=== PATIENT | female | born 1955 | race Caucasian/White ===

== ENCOUNTER → 2021-09-27 | Outpatient (CLI) | payer MEDICARE, OTHER ==
[2021-09-27 13:49] LABS: BASO % 0.4 % (0.0-1.0); EOS # 0.1 10^3/uL (0.0-0.5); EOS % 1.7 % (0.0-3.0); HEMATOCRIT 46.1 % (36.0-47.0); HEMOGLOBIN 15.3 g/dl (12.0-15.5); LYMPH % 24.1 % (24.0-44.0); MEAN CORPUSCULAR HEMOGLOBIN 29.1 pg (27.0-33.0); MEAN CORPUSCULAR HGB CONC 33.2 g/dl (32.0-36.5); MEAN CORPUSCULAR VOLUME 87.6 fl (80.0-96.0); MONO # 0.9 10^3/uL (0.0-0.8); MONO % 10.5 % (2.0-8.0); NEUTROPHILS # 5.3 10^3/uL (1.5-8.5); NEUTROPHILS % 63.1 % (36.0-66.0); PLATELET COUNT, AUTOMATED 292 10^3/uL (150-450); RED BLOOD COUNT 5.26 10^6/uL (4.00-5.40); WHITE BLOOD COUNT 8.4 10^3/uL (4.0-10.0)
[2021-09-27 14:14] LABS: ALT/SGPT 29 U/L (12-78); BILIRUBIN,TOTAL 0.3 MG/DL (0.2-1.0); BLOOD UREA NITROGEN 14 MG/DL (7-18); CALCIUM LEVEL 10.1 MG/DL (8.8-10.2); CARBON DIOXIDE LEVEL 33 MEQ/L (21-32); CHLORIDE LEVEL 102 MEQ/L (98-107); CHOLESTEROL LEVEL 180 MG/DL (<200); CHOLESTEROL RISK RATIO 5.142 (<5); CREATININE FOR GFR 0.65 MG/DL (0.55-1.30); GLOMERULAR FILTRATION RATE > 60.0 (>45); GLUCOSE, FASTING 104 MG/DL (70-100); HDL CHOLESTEROL 35 MG/DL (>40); LDL CHOLESTEROL 107 MG/DL (<100); NON-HDL-C 145 MG/DL; POTASSIUM SERUM 4.1 MEQ/L (3.5-5.1); SODIUM LEVEL 139 MEQ/L (136-145); TOTAL PROTEIN 7.4 GM/DL (6.4-8.2); TRIGLYCERIDES LEVEL 192 MG/DL (<150)
[2021-09-27 14:21] LABS: CREATININE, URINE 16.7 MG/DL; MALB URINE SIEMENS 5.2 MG/L; MAU/CREAT RATIO 31.1 MCG/MG (0.0-30.0)
[2021-09-27 15:06] LABS: HEMOGLOBIN A1c 5.8 %
== END ==
LOC: M PLALAB 10:35
PROVIDERS: ATTEND Nurse Practitioner Family
DX: I10 Essential (primary) hypertension (principal); E78.2 Mixed hyperlipidemia; E11.9 Type 2 diabetes mellitus without complications

== ENCOUNTER → 2022-05-13 | Outpatient (CLI) | payer MEDICARE, OTHER ==
[2022-05-13 11:45] LABS: HEMOGLOBIN A1c 5.8 %
== END ==
LOC: M LAB 10:27
PROVIDERS: ATTEND Family Medicine
DX: E11.9 Type 2 diabetes mellitus without complications (principal)

== ENCOUNTER → 2022-09-08 | Outpatient (CLI) | payer MEDICARE, OTHER ==
[2022-09-08 09:55] LABS: BASO # 0.1 10^3/uL (0.0-0.2); BASO % 0.5 % (0.0-1.0); EOS # 0.2 10^3/uL (0.0-0.5); EOS % 2.1 % (0.0-3.0); HEMOGLOBIN 15.6 g/dl (12.0-15.5); LYMPH # 3.2 10^3/uL (1.5-5.0); MEAN CORPUSCULAR HEMOGLOBIN 28.8 pg (27.0-33.0); MEAN CORPUSCULAR HGB CONC 33.2 g/dl (32.0-36.5); MEAN CORPUSCULAR VOLUME 86.9 fl (80.0-96.0); MONO % 10.7 % (2.0-8.0); NEUTROPHILS # 4.7 10^3/uL (1.5-8.5); NEUTROPHILS % 51.5 % (36.0-66.0); PLATELET COUNT, AUTOMATED 259 10^3/uL (150-450); RED BLOOD COUNT 5.41 10^6/uL (4.00-5.40); WHITE BLOOD COUNT 9.2 10^3/uL (4.0-10.0)
[2022-09-08 10:15] LABS: HEMOGLOBIN A1c 5.8 % (4.0-6.0)
[2022-09-08 10:21] LABS: CREATININE, URINE 83.8 MG/DL; MAU/CREAT RATIO 119.3 MCG/MG (0.0-30.0)
[2022-09-08 10:26] LABS: ALBUMIN 4.2 G/DL (3.2-5.2); ALKALINE PHOSPHATASE 82 U/L (46-116); ALT/SGPT 34 U/L (7.0-40); AST/SGOT 32 U/L (<34); BILIRUBIN,TOTAL 0.5 MG/DL (0.3-1.2); BLOOD UREA NITROGEN 11 MG/DL (9-23); CALCIUM LEVEL 10.1 MG/DL (8.3-10.6); CARBON DIOXIDE LEVEL 31 MMOL/L (20-31); CHLORIDE LEVEL 95 MMOL/L (98-107); CHOLESTEROL LEVEL 189 MG/DL (<200); CREATININE FOR GFR 0.52 MG/DL (0.55-1.30); GLOMERULAR FILTRATION RATE > 60.0 (>45); GLUCOSE, FASTING 114 MG/DL (74-106); HDL CHOLESTEROL 42.9 MG/DL (>40); LDL CHOLESTEROL 110.3 MG/DL (<100); NON-HDL-C 146 MG/DL; POTASSIUM SERUM 3.9 MMOL/L (3.5-5.1); SODIUM LEVEL 134 MMOL/L (136-145); TOTAL PROTEIN 7.3 G/DL (5.7-8.2); TRIGLYCERIDES LEVEL 179 MG/DL (<150)
== END ==
LOC: M LAB 09:05
PROVIDERS: ATTEND Nurse Practitioner Family
DX: E11.9 Type 2 diabetes mellitus without complications (principal); I10 Essential (primary) hypertension

== ENCOUNTER 2022-09-13 15:53 | Observation (INO) | payer MEDICARE, OTHER ==
[~2022-09-13] VITALS: Ht 160 cm; Wt 118.7 kg
[2022-09-13] MEDS: NICOTINE 21MG/24HR 1 EA TRANSDERMAL TD SCH (09:00)
[2022-09-13] MEDS ORDERED: LABETALOL 100MG/20ML VIAL IV STA (16:41)
[2022-09-13 17:26] LABS: BASO # 0.1 10^3/uL (0.0-0.2); BASO % 0.6 % (0.0-1.0); EOS # 0.1 10^3/uL (0.0-0.5); EOS % 1.1 % (0.0-3.0); HEMATOCRIT 46.5 % (36.0-47.0); HEMOGLOBIN 16.4 g/dl (12.0-15.5); LYMPH # 2.3 10^3/uL (1.5-5.0); LYMPH % 26.1 % (24.0-44.0); MEAN CORPUSCULAR HGB CONC 35.3 g/dl (32.0-36.5); MONO # 1.2 10^3/uL (0.0-0.8); NEUTROPHILS # 5.3 10^3/uL (1.5-8.5); NEUTROPHILS % 59.1 % (36.0-66.0); PLATELET COUNT, AUTOMATED 273 10^3/uL (150-450); RED BLOOD COUNT 5.47 10^6/uL (4.00-5.40); WHITE BLOOD COUNT 8.9 10^3/uL (4.0-10.0)
[2022-09-13 17:38] LABS: ALBUMIN 4.5 G/DL (3.2-5.2); ALKALINE PHOSPHATASE 84 U/L (46-116); ALT/SGPT 29 U/L (7.0-40); AST/SGOT 32 U/L (<34); BILIRUBIN,DIRECT 0.1 MG/DL (<0.4); BILIRUBIN,TOTAL 0.3 MG/DL (0.3-1.2); BLOOD UREA NITROGEN 7 MG/DL (9-23); CARBON DIOXIDE LEVEL 31 MMOL/L (20-31); CHLORIDE LEVEL 94 MMOL/L (98-107); CREATININE FOR GFR 0.54 MG/DL (0.55-1.30); GLOMERULAR FILTRATION RATE > 60.0 (>45); GLUCOSE, FASTING 97 MG/DL (74-106); POTASSIUM SERUM 3.5 MMOL/L (3.5-5.1); SODIUM LEVEL 132 MMOL/L (136-145); TOTAL PROTEIN 7.8 G/DL (5.7-8.2)
[2022-09-13 17:40] LABS: THYROID STIMULATING HORMONE 2.126 uIU/ML (0.55-4.78)
[2022-09-13 17:54] LABS: RSV AMPLIFICATION NEGATIVE (NEGATIVE)
[2022-09-13] MEDS ORDERED: SIMV10TA21 PO (18:15)
[2022-09-13] MEDS ORDERED: VENL75CA47 PO ×2 (18:15)
[2022-09-13] MEDS ORDERED: QUET150T14 PO (18:15)
[2022-09-13] MEDS ORDERED: ALBU8.5H INH (18:15)
[2022-09-13] MEDS ORDERED: ERGO500029 PO (18:15)
[2022-09-13] MEDS ORDERED: HYDR-3490 PO (18:15)
[2022-09-13] MEDS ORDERED: LISI10TA22 PO (18:15)
[2022-09-13] MEDS ORDERED: METF10004 PO (18:15)
[2022-09-13] MEDS ORDERED: hydrALAZINE 20MG/ML 1ML VIAL IV STA (18:47)
[2022-09-13] MEDS ORDERED: ISOVUE-370 76% 100ML VIAL As Ordered ONE (19:08)
[2022-09-13] MEDS ORDERED: HOME MED LIST COMPLETE! XX SCH (20:55)
[2022-09-13] MEDS ORDERED: GLUCAGON INJ 1MG VIAL SC PRN (21:50)
[2022-09-13] MEDS ORDERED: MOM 30ML SUSPENSION UDC PO PRN (21:50)
[2022-09-13] MEDS ORDERED: ACETAMINOPHEN TAB 650MG DOSE (2X325MG) PO PRN (21:50)
[2022-09-13] MEDS ORDERED: GLUCOSE 4GM CHEW TABLET PO PRN (21:50)
[2022-09-13] MEDS ORDERED: ALBUTEROL 90 MCG/ACT 8GM HFA INHALER INH PRN (21:50)
[2022-09-13] MEDS ORDERED: DEXTROSE 50% 50ML SYRINGE IV PRN (21:50)
[2022-09-13] MEDS: SIMVASTATIN 10 MG TAB PO SCH (22:34)
[2022-09-13] MEDS ORDERED: amLODIPine 5 MG TAB PO ONE (23:00)
[2022-09-14] MEDS ORDERED: amLODIPine 5 MG TAB PO SCH (00:45)
[2022-09-14] MEDS: QUEtiapine FUMERATE XR 50MG TABER PO SCH ×2 (01:26→21:38)
[2022-09-14] MEDS: LevoFLOXacin 500 MG TABLET PO SCH (05:39)
[2022-09-14 07:19] LABS: BLOOD UREA NITROGEN 12 MG/DL (9-23); CALCIUM LEVEL 9.6 MG/DL (8.3-10.6); CARBON DIOXIDE LEVEL 28 MMOL/L (20-31); CHLORIDE LEVEL 95 MMOL/L (98-107); CHOLESTEROL LEVEL 169 MG/DL (<200); CHOLESTEROL RISK RATIO 4.41 (<5); CREATININE FOR GFR 0.93 MG/DL (0.55-1.30); GLOMERULAR FILTRATION RATE > 60.0 (>45); GLUCOSE, FASTING 104 MG/DL (74-106); HDL CHOLESTEROL 38.3 MG/DL (>40); LDL CHOLESTEROL 102.3 MG/DL (<100); NON-HDL-C 131 MG/DL; POTASSIUM SERUM 3.2 MMOL/L (3.5-5.1); SODIUM LEVEL 133 MMOL/L (136-145); TRIGLYCERIDES LEVEL 142 MG/DL (<150)
[2022-09-14] MEDS: INSULIN LISPRO (NovoLOG) PER UNIT SC SCH ×3 (07:20→17:30)
[2022-09-14 08:46] LABS: BASO % 0.4 % (0.0-1.0); EOS # 0.1 10^3/uL (0.0-0.5); EOS % 1.2 % (0.0-3.0); HEMATOCRIT 43.5 % (36.0-47.0); HEMOGLOBIN 14.8 g/dl (12.0-15.5); LYMPH # 2.8 10^3/uL (1.5-5.0); LYMPH % 30.7 % (24.0-44.0); MEAN CORPUSCULAR HEMOGLOBIN 29.2 pg (27.0-33.0); MEAN CORPUSCULAR VOLUME 85.8 fl (80.0-96.0); MONO # 1.3 10^3/uL (0.0-0.8); MONO % 14.1 % (2.0-8.0); NEUTROPHILS # 4.8 10^3/uL (1.5-8.5); NEUTROPHILS % 53.3 % (36.0-66.0); PLATELET COUNT, AUTOMATED 255 10^3/uL (150-450); RED BLOOD COUNT 5.07 10^6/uL (4.00-5.40)
[2022-09-14] MEDS ORDERED: ENOXAPARIN 40MG/0.4ML SYRINGE (J1650 PER 10MG) SC SCH (09:00)
[2022-09-14] MEDS ORDERED: POTASSIUM CHLORIDE 10MEQ SR TABLET PO ONE (09:00)
[2022-09-14] MEDS: NICOTINE 21MG/24HR 1 EA TRANSDERMAL TD SCH ×2 (09:25→09:28)
[2022-09-14] MEDS: VENLAFAXINE **XR** 75MG CAPSULE PO SCH (09:26)
[2022-09-14] MEDS: amLODIPine 5 MG TAB PO SCH (09:26)
[2022-09-14 15:07] VITALS: BP 143/69
[2022-09-14] MEDS ORDERED: LORazepam 2 MG/ML 1ML VIAL IV PRN (15:20)
[2022-09-14] MEDS ORDERED: NS 1,000 ML IV SCH (17:15)
[2022-09-14 20:00] VITALS: BP 147/63
[2022-09-14 20:47] LABS: BLOOD UREA NITROGEN 21 MG/DL (9-23); CALCIUM LEVEL 9.5 MG/DL (8.3-10.6); CARBON DIOXIDE LEVEL 32 MMOL/L (20-31); CHLORIDE LEVEL 97 MMOL/L (98-107); CREATININE FOR GFR 0.85 MG/DL (0.55-1.30); GLOMERULAR FILTRATION RATE > 60.0 (>45); GLUCOSE, FASTING 101 MG/DL (74-106); SODIUM LEVEL 134 MMOL/L (136-145)
[2022-09-14] MEDS ORDERED: INSULIN LISPRO (NovoLOG) PER UNIT SC SCH (21:00)
[2022-09-14] MEDS: SIMVASTATIN 10 MG TAB PO SCH (21:38)
[2022-09-15] VITALS: BP 146/65
[2022-09-15 04:00] VITALS: BP 123/78
[2022-09-15] MEDS: LevoFLOXacin 500 MG TABLET PO SCH (06:23)
[2022-09-15 07:29] LABS: BASO % 0.5 % (0.0-1.0); EOS # 0.2 10^3/uL (0.0-0.5); HEMATOCRIT 41.3 % (36.0-47.0); HEMOGLOBIN 13.7 g/dl (12.0-15.5); LYMPH # 2.5 10^3/uL (1.5-5.0); LYMPH % 32.1 % (24.0-44.0); MEAN CORPUSCULAR HEMOGLOBIN 28.9 pg (27.0-33.0); MEAN CORPUSCULAR HGB CONC 33.2 g/dl (32.0-36.5); MEAN CORPUSCULAR VOLUME 87.1 fl (80.0-96.0); MONO # 1.1 10^3/uL (0.0-0.8); MONO % 14.8 % (2.0-8.0); NEUTROPHILS # 3.8 10^3/uL (1.5-8.5); NEUTROPHILS % 50.3 % (36.0-66.0); PLATELET COUNT, AUTOMATED 232 10^3/uL (150-450); RED BLOOD COUNT 4.74 10^6/uL (4.00-5.40); WHITE BLOOD COUNT 7.6 10^3/uL (4.0-10.0)
[2022-09-15 08:02] LABS: BLOOD UREA NITROGEN 13 MG/DL (9-23); CALCIUM LEVEL 8.6 MG/DL (8.3-10.6); CARBON DIOXIDE LEVEL 29 MMOL/L (20-31); CHLORIDE LEVEL 103 MMOL/L (98-107); CREATININE FOR GFR 0.55 MG/DL (0.55-1.30); GLOMERULAR FILTRATION RATE > 60.0 (>45); GLUCOSE, FASTING 102 MG/DL (74-106); MAGNESIUM LEVEL 1.8 MG/DL (1.8-2.4); POTASSIUM SERUM 3.9 MMOL/L (3.5-5.1); SODIUM LEVEL 137 MMOL/L (136-145)
[2022-09-15 08:34] VITALS: BP 139/65
[2022-09-15] MEDS: INSULIN LISPRO (NovoLOG) PER UNIT SC SCH ×2 (08:40→13:13)
[2022-09-15] MEDS: NICOTINE 21MG/24HR 1 EA TRANSDERMAL TD SCH (09:14)
[2022-09-15 09:15] VITALS: BP 139/65
[2022-09-15] MEDS: amLODIPine 5 MG TAB PO SCH (09:15)
[2022-09-15] MEDS: VENLAFAXINE **XR** 75MG CAPSULE PO SCH (09:15)
[2022-09-15 11:45] VITALS: BP 127/60
[2022-09-15] MEDS ORDERED: AMLO1TAB24 PO (11:58)
[2022-09-15] MEDS ORDERED: NICO21DI37 TOP (14:52)
== END 2022-09-15 14:30 | disposition home or self-care (01) ==
LOC: M ED 15:53 → M ED INP 15:54 → ENRESERV 09-14 13:51 → M PCU 09-14 15:07
PROVIDERS: ADMIT Internal Medicine; ATTEND Internal Medicine
DX: I16.0 Hypertensive urgency (principal); G93.40 Encephalopathy, unspecified; F17.210 Nicotine dependence, cigarettes, uncomplicated; J44.9 Chronic obstructive pulmonary disease, unspecified; E11.9 Type 2 diabetes mellitus without complications; E78.5 Hyperlipidemia, unspecified; K57.92 Diverticulitis of intestine, part unspecified, without perforation or abscess without bleeding; F25.9 Schizoaffective disorder, unspecified; Z88.0 Allergy status to penicillin; Z88.2 Allergy status to sulfonamides; Z79.84 Long term (current) use of oral hypoglycemic drugs; Z79.899 Other long term (current) drug therapy
CPT/HCPCS: 36415; 70450; 70551; 71046; 71275; 80048; 80061; 80076; 81001; 83735; 84443; 84484; 85025; 87088; 87186; 87631; 93005; 93041; 94760; 96361; 96374; 96375; 97161; 99285; G0378; J0360; J1815; J2060; Q9967

== ENCOUNTER → 2022-09-16 | Emergency (ER) | payer MEDICARE, OTHER ==
[~2022-09-16] VITALS: Ht 160 cm; Wt 83.0 kg
[~2022-09-16] MED LIST: ALBU8.5H INH; AMLO1TAB24 PO; ERGO500029 PO; HYDR-3490 PO; LISI10TA22 PO; METF10004 PO; NICO21DI37 TOP; QUET150T14 PO; SIMV10TA21 PO; VENL75CA47 PO
[2022-09-16 17:35] VITALS: BP 200/80
== END | disposition left against medical advice (07) ==
LOC: M ED 17:33
DX: Z53.21 Procedure and treatment not carried out due to patient leaving prior to being seen by health care provider (principal)

== ENCOUNTER 2024-03-12 15:17 | Inpatient (IN) | payer MEDICARE, OTHER ==
[~2024-03-12] VITALS: Ht 160 cm; Wt 89.0 kg
[2024-03-12] MEDS: ENOXAPARIN 100MG/1ML SYRINGE (J1650 PER 10MG) SC ONE (15:32)
[2024-03-12] MEDS: dilTIAZem 25MG/5ML VIAL IV STA ×2 (15:32→16:30)
[2024-03-12] MEDS ORDERED: MAGNESIUM SULFATE IN WATER 2 GM in IV 1 EA IV STA (15:33)
[2024-03-12 15:38] LABS: VENOUS BASE EXCESS -1.4 (-2.0-2.0); VENOUS HCO3 27.7 MMOL/L (23.0-27.0); VENOUS O2 SATURATION 45.2 % (60.0-80.0); VENOUS PARTIAL PRESSURE CO2 64.5 mmHg (38.0-50.0); VENOUS PARTIAL PRESSURE O2 28.7 mmHg (30.0-50.0); VENOUS STANDARD HCO3 21.9 MMOL/L; VENOUS TOTAL CO2 29.6 MMOL/L (24.0-28.0)
[2024-03-12] MEDS: LEVALBUTEROL 1.25MG 0.5ML CONCENTRATE NEB NEB ONE ×3 (15:44→16:29)
[2024-03-12 15:51] LABS: BASO % 0.6 % (0.0-1.0); EOS % 0.2 % (0.0-3.0); HEMATOCRIT 51.1 % (36.0-47.0); HEMOGLOBIN 15.7 g/dl (12.0-15.5); LYMPH # 1.3 10^3/uL (1.5-5.0); LYMPH % 20.4 % (24.0-44.0); MEAN CORPUSCULAR HEMOGLOBIN 26.3 pg (27.0-33.0); MEAN CORPUSCULAR HGB CONC 30.7 g/dl (32.0-36.5); MEAN CORPUSCULAR VOLUME 85.5 fl (80.0-96.0); MONO # 0.8 10^3/uL (0.0-0.8); MONO % 13.2 % (2.0-8.0); NEUTROPHILS # 4.2 10^3/uL (1.5-8.5); NEUTROPHILS % 65.3 % (36.0-66.0); PLATELET COUNT, AUTOMATED 222 10^3/uL (150-450); RED BLOOD COUNT 5.98 10^6/uL (4.00-5.40); WHITE BLOOD COUNT 6.4 10^3/uL (4.0-10.0)
[2024-03-12] MEDS ORDERED: MAG SULF 1GM/100ML (MAG RUN) 1 GM in IV 1 EA IV SCH (16:00)
[2024-03-12 16:01] LABS: ABG BASE EXCESS -1.7 (-2.0-2.0); ABG HCO3 25.2 MMOL/L (22.0-26.0); ABG O2 SATURATION 95.7 % (95.0-99.0); ABG PARTIAL PRESSURE CO2 50.6 mmHg (35.0-45.0); ABG PARTIAL PRESSURE O2 87.5 mmHg (75.0-100.0); ABG TOTAL CO2 26.7 MMOL/L (23.0-31.0); ABG pH (ARTERIAL) 7.315 UNITS (7.350-7.450)
[2024-03-12 16:04] LABS: INR 1.23; PROTHROMBIN TIME 15.1 SECONDS (12.5-14.5)
[2024-03-12 16:22] LABS: CK-MB VALUE MASS 5.6 NG/ML (<3.6)
[2024-03-12 16:24] LABS: ALKALINE PHOSPHATASE 130 U/L (46-116); ALT/SGPT 28 U/L (7.0-40); AST/SGOT 32 U/L (<34); BILIRUBIN,DIRECT 0.4 MG/DL (<0.4); BILIRUBIN,TOTAL 0.8 MG/DL (0.3-1.2); BLOOD UREA NITROGEN 9 MG/DL (9-23); CALCIUM LEVEL 9.1 MG/DL (8.3-10.6); CARBON DIOXIDE LEVEL 31 MMOL/L (20-31); CHLORIDE LEVEL 104 MMOL/L (98-107); CPK CREATINE PHOSPHOKINASE 209 U/L (34-145); CREATININE FOR GFR 0.64 MG/DL (0.55-1.30); GLOMERULAR FILTRATION RATE > 60.0 (>45); GLUCOSE, FASTING 173 MG/DL (74-106); MB/CK RELATIVE INDEX 2.67 (< OR =4); POTASSIUM SERUM 3.7 MMOL/L (3.5-5.1); SODIUM LEVEL 138 MMOL/L (136-145); TOTAL PROTEIN 7.6 G/DL (5.7-8.2)
[2024-03-12] MEDS: MAG SULF 1GM/100ML (MAG RUN) 1 GM in IV 1 EA IV SCH (16:26)
[2024-03-12] MEDS: MIDAZOLAM INJ 2MG/2ML VIAL IV ONE (16:31)
[2024-03-12] MEDS ORDERED: AMLO1TAB25 PO (17:16)
[2024-03-12] MEDS ORDERED: HOME MED LIST COMPLETE! XX SCH (17:20)
[2024-03-12] MEDS ORDERED: AMIODARONE HCL 150 MG in IV 1 EA IV ONE (17:30)
[2024-03-12] MEDS ORDERED: GLUCAGON INJ 1MG VIAL SC PRN (17:30)
[2024-03-12] MEDS ORDERED: GLUCOSE 4 GM CHEW PO PRN (17:30)
[2024-03-12] MEDS ORDERED: DEXTROSE 50% 50ML SYRINGE IV PRN (17:30)
[2024-03-12] MEDS ORDERED: ACETAMINOPHEN TAB 650MG DOSE (2X325MG) PO PRN (17:45)
[2024-03-12] MEDS: methylPREDNISolone 125MG 2ML VIAL IV STA (17:58)
[2024-03-12] MEDS: diltiaZEM 125 MG in NS 100 ML IV SCH (18:00)
[2024-03-12] MEDS ORDERED: AMIODARONE HCL 360 MG in IV 1 EA IV SCH (18:00)
[2024-03-12 18:15] VITALS: BP 131/74; TEMP 97.5; O2SAT 99
[2024-03-12 19:00] VITALS: BP 129/97; O2SAT 98
[2024-03-12] MEDS: IPRATROPIUM 0.5MG/ALBUTEROL 2.5MG INH SOL UD 3ML (DUONEB) NEB SCH (19:01)
[2024-03-12] MEDS: INSULIN LISPRO (NovoLOG) PER UNIT SC SCH (19:41)
[2024-03-12 20:00] VITALS: BP 137/89; TEMP 97.6; O2SAT 96
[2024-03-12 21:00] VITALS: BP 130/81; O2SAT 97
[2024-03-12 22:00] VITALS: BP 147/82; O2SAT 97
[2024-03-12] MEDS: BUDESONIDE 0.5 MG/2 ML INHALATION SUSPENSION NEB SCH (22:06)
[2024-03-12 23:00] VITALS: BP 138/66; O2SAT 94
[2024-03-13] VITALS (16 sets, daily range): BP systolic 118–158; BP diastolic 58–85; TEMP 97–97.5; O2SAT 88–99
[2024-03-13] MEDS ORDERED: AMIODARONE HCL 360 MG in IV 1 EA IV SCH
[2024-03-13 00:14] LABS: ABG BASE EXCESS -1.2 (-2.0-2.0); ABG O2 SATURATION 97.7 % (95.0-99.0); ABG PARTIAL PRESSURE CO2 52.9 mmHg (35.0-45.0); ABG STANDARD HCO3 23.5 MMOL/L. (22.0-26.0); ABG TOTAL CO2 27.7 MMOL/L (23.0-31.0)
[2024-03-13] MEDS: QUEtiapine FUMERATE XR 50MG TABER PO SCH (00:23)
[2024-03-13 04:54] LABS: HEMATOCRIT 46.9 % (36.0-47.0); HEMOGLOBIN 14.6 g/dl (12.0-15.5); MEAN CORPUSCULAR HEMOGLOBIN 26.3 pg (27.0-33.0); MEAN CORPUSCULAR HGB CONC 31.1 g/dl (32.0-36.5); MEAN CORPUSCULAR VOLUME 84.5 fl (80.0-96.0); PLATELET COUNT, AUTOMATED 206 10^3/uL (150-450); RED BLOOD COUNT 5.55 10^6/uL (4.00-5.40); WHITE BLOOD COUNT 4.4 10^3/uL (4.0-10.0)
[2024-03-13 05:17] LABS: THYROID STIMULATING HORMONE 0.725 uIU/ML (0.55-4.78)
[2024-03-13 05:24] LABS: BLOOD UREA NITROGEN 16 MG/DL (9-23); CALCIUM LEVEL 9.3 MG/DL (8.3-10.6); CARBON DIOXIDE LEVEL 29 MMOL/L (20-31); CHLORIDE LEVEL 104 MMOL/L (98-107); CREATININE FOR GFR 0.65 MG/DL (0.55-1.30); GLOMERULAR FILTRATION RATE > 60.0 (>45); GLUCOSE, FASTING 149 MG/DL (74-106); POTASSIUM SERUM 3.2 MMOL/L (3.5-5.1); SODIUM LEVEL 140 MMOL/L (136-145)
[2024-03-13] MEDS: POTASSIUM CHLORIDE 10MEQ SR TABLET PO ONE (05:48)
[2024-03-13] MEDS: ENOXAPARIN 100MG/1ML SYRINGE (J1650 PER 10MG) SC SCH (05:49)
[2024-03-13] MEDS: methylPREDNISolone 125MG 2ML VIAL IV SCH ×2 (06:32→18:02)
[2024-03-13] MEDS ORDERED: GLUCAGON INJ 1MG VIAL SC PRN (07:40)
[2024-03-13] MEDS ORDERED: GLUCOSE 4 GM CHEW PO PRN (07:40)
[2024-03-13] MEDS ORDERED: DEXTROSE 50% 50ML SYRINGE IV PRN (07:40)
[2024-03-13] MEDS: VENLAFAXINE **XR** 75MG CAPSULE PO SCH (08:57)
[2024-03-13] MEDS: PANTOPRAZOLE 40MG VIAL IV SCH (08:58)
[2024-03-13] MEDS: dilTIAZem 30 MG TAB PO SCH (10:23)
[2024-03-13] MEDS: INSULIN LISPRO (NovoLOG) PER UNIT SC SCH ×2 (12:32→20:23)
[2024-03-13] MEDS: diltiaZEM 125 MG in NS 100 ML IV SCH (12:34)
[2024-03-13] MEDS: CEPACOL LOZENGE PO PRN (15:53)
[2024-03-13] MEDS: BISACODYL 10MG SUPP PR ONE (18:00)
[2024-03-13] MEDS: METOPROLOL TART 25 MG TABLET PO SCH (18:57)
[2024-03-14] VITALS: BP 110/73; TEMP 97.5; O2SAT 94
[2024-03-14] MEDS: IPRATROPIUM 0.5MG/ALBUTEROL 2.5MG INH SOL UD 3ML (DUONEB) NEB SCH (01:32)
[2024-03-14 04:00] VITALS: BP 137/67; TEMP 97.4; O2SAT 94
[2024-03-14 05:25] LABS: BLOOD UREA NITROGEN 24 MG/DL (9-23); CALCIUM LEVEL 9.7 MG/DL (8.3-10.6); CARBON DIOXIDE LEVEL 29 MMOL/L (20-31); CHLORIDE LEVEL 104 MMOL/L (98-107); CREATININE FOR GFR 0.74 MG/DL (0.55-1.30); GLOMERULAR FILTRATION RATE > 60.0 (>45); GLUCOSE, FASTING 139 MG/DL (74-106); POTASSIUM SERUM 4.7 MMOL/L (3.5-5.1); SODIUM LEVEL 136 MMOL/L (136-145)
[2024-03-14 05:27] LABS: HEMATOCRIT 47.5 % (36.0-47.0); HEMOGLOBIN 14.6 g/dl (12.0-15.5); MEAN CORPUSCULAR HEMOGLOBIN 26.4 pg (27.0-33.0); MEAN CORPUSCULAR HGB CONC 30.7 g/dl (32.0-36.5); MEAN CORPUSCULAR VOLUME 85.7 fl (80.0-96.0); PLATELET COUNT, AUTOMATED 240 10^3/uL (150-450); RED BLOOD COUNT 5.54 10^6/uL (4.00-5.40); WHITE BLOOD COUNT 14.6 10^3/uL (4.0-10.0)
[2024-03-14 08:00] VITALS: BP 106/56; TEMP 96.8; O2SAT 93
[2024-03-14] MEDS: SENNA 8.6 MG TAB (SENOKOT) PO SCH (08:59)
[2024-03-14] MEDS: DOCUSATE SODIUM 100MG CAPSULE PO SCH (08:59)
[2024-03-14 12:00] VITALS: BP 116/67; TEMP 97.2; O2SAT 94
[2024-03-14] MEDS: MIRALAX *UNIT DOSE* 17GM PACKET PO PRN (15:14)
[2024-03-14 16:00] VITALS: BP 146/72; TEMP 97.6; O2SAT 93
[2024-03-14] MEDS: NICOTINE 21MG/24HR 1 EA TRANSDERMAL TD PRN (16:11)
[2024-03-14] MEDS: dilTIAZem 30 MG TAB PO ONE (17:42)
[2024-03-14 20:00] VITALS: BP 129/72; TEMP 98; O2SAT 95
[2024-03-14] MEDS: APIXABAN 5 MG TAB (ELIQUIS) PO SCH (20:37)
[2024-03-14] MEDS: SIMVASTATIN 10 MG TAB PO SCH (20:37)
[2024-03-14] MEDS: dilTIAZem 60 MG TAB PO SCH (21:09)
[2024-03-15] VITALS (7 sets, daily range): BP systolic 132–164; BP diastolic 51–89; TEMP 96.8–97.9; O2SAT 91–94
[2024-03-15] MEDS: LEVALBUTEROL 1.25MG 0.5ML CONCENTRATE NEB INH PRN (01:26)
[2024-03-15] MEDS ORDERED: LEVALBUTEROL 1.25MG 0.5ML CONCENTRATE NEB INH SCH (02:00)
[2024-03-15 06:13] LABS: HEMOGLOBIN 14.9 g/dl (12.0-15.5); MEAN CORPUSCULAR HEMOGLOBIN 26.3 pg (27.0-33.0); MEAN CORPUSCULAR HGB CONC 30.4 g/dl (32.0-36.5); MEAN CORPUSCULAR VOLUME 86.6 fl (80.0-96.0); PLATELET COUNT, AUTOMATED 225 10^3/uL (150-450); RED BLOOD COUNT 5.66 10^6/uL (4.00-5.40); WHITE BLOOD COUNT 13.7 10^3/uL (4.0-10.0)
[2024-03-15 06:40] LABS: BLOOD UREA NITROGEN 22 MG/DL (9-23); CALCIUM LEVEL 9.9 MG/DL (8.3-10.6); CARBON DIOXIDE LEVEL 34 MMOL/L (20-31); CHLORIDE LEVEL 107 MMOL/L (98-107); CREATININE FOR GFR 0.63 MG/DL (0.55-1.30); GLOMERULAR FILTRATION RATE > 60.0 (>45); GLUCOSE, FASTING 141 MG/DL (74-106); POTASSIUM SERUM 5.4 MMOL/L (3.5-5.1); SODIUM LEVEL 143 MMOL/L (136-145)
[2024-03-15] MEDS: METOPROLOL TART 25 MG TABLET PO SCH (09:02)
[2024-03-15] MEDS: ALPRAZolam 0.25 MG TAB PO PRN (15:36)
[2024-03-16] VITALS (9 sets, daily range): BP systolic 126–159; BP diastolic 67–99; TEMP 97.1–98.6; O2SAT 88–93
[2024-03-16 04:36] LABS: HEMATOCRIT 46.4 % (36.0-47.0); HEMOGLOBIN 14.5 g/dl (12.0-15.5); MEAN CORPUSCULAR HEMOGLOBIN 26.5 pg (27.0-33.0); MEAN CORPUSCULAR HGB CONC 31.3 g/dl (32.0-36.5); MEAN CORPUSCULAR VOLUME 84.8 fl (80.0-96.0); PLATELET COUNT, AUTOMATED 187 10^3/uL (150-450); RED BLOOD COUNT 5.47 10^6/uL (4.00-5.40); WHITE BLOOD COUNT 10.3 10^3/uL (4.0-10.0)
[2024-03-16 05:02] LABS: BLOOD UREA NITROGEN 18 MG/DL (9-23); CARBON DIOXIDE LEVEL 31 MMOL/L (20-31); CHLORIDE LEVEL 107 MMOL/L (98-107); CREATININE FOR GFR 0.53 MG/DL (0.55-1.30); GLOMERULAR FILTRATION RATE > 60.0 (>45); GLUCOSE, FASTING 163 MG/DL (74-106); POTASSIUM SERUM 4.8 MMOL/L (3.5-5.1); SODIUM LEVEL 142 MMOL/L (136-145)
[2024-03-16] MEDS: LEVALBUTEROL 1.25MG 0.5ML CONCENTRATE NEB INH SCH ×2 (10:54→19:19)
[2024-03-16] MEDS ORDERED: dilTIAZem 30 MG TAB PO ONE (17:10)
[2024-03-16] MEDS: METOPROLOL 5 MG/5 ML VIAL IV STA (17:18)
[2024-03-16] MEDS: dilTIAZem 60 MG TAB PO SCH (21:19)
[2024-03-16] MEDS: NITROFURANTOIN (MACROBID) 100 MG CAP PO SCH (21:20)
[2024-03-17] VITALS (10 sets, daily range): BP systolic 128–184; BP diastolic 69–80; TEMP 96.9–97.8; O2SAT 83–97
[2024-03-17 04:56] LABS: HEMATOCRIT 51.8 % (36.0-47.0); HEMOGLOBIN 16.1 g/dl (12.0-15.5); MEAN CORPUSCULAR HEMOGLOBIN 26.5 pg (27.0-33.0); MEAN CORPUSCULAR HGB CONC 31.1 g/dl (32.0-36.5); MEAN CORPUSCULAR VOLUME 85.3 fl (80.0-96.0); PLATELET COUNT, AUTOMATED 212 10^3/uL (150-450); RED BLOOD COUNT 6.07 10^6/uL (4.00-5.40); WHITE BLOOD COUNT 9.8 10^3/uL (4.0-10.0)
[2024-03-17 05:33] LABS: BLOOD UREA NITROGEN 13 MG/DL (9-23); CALCIUM LEVEL 8.5 MG/DL (8.3-10.6); CARBON DIOXIDE LEVEL > 40.0 MMOL/L (20-31); CHLORIDE LEVEL 102 MMOL/L (98-107); GLOMERULAR FILTRATION RATE > 60.0 (>45); GLUCOSE, FASTING 149 MG/DL (74-106); POTASSIUM SERUM 3.9 MMOL/L (3.5-5.1); SODIUM LEVEL 144 MMOL/L (136-145)
[2024-03-17] MEDS: methylPREDNISolone 40MG 1ML VIAL IV SCH (08:07)
[2024-03-17] MEDS ORDERED: PILL CUTTER 1 EACH XX PRN (10:45)
[2024-03-17] MEDS: METOPROLOL TART 25 MG TABLET PO ONE (12:35)
[2024-03-17] MEDS: guaiFENesin 200 MG TAB PO SCH (12:36)
[2024-03-17] MEDS: METOPROLOL TART 50 MG TAB PO SCH (21:33)
[2024-03-17] MEDS ORDERED: ANUSOL HC CREAM 30GM TOP PRN (23:10)
[2024-03-18] VITALS (9 sets, daily range): BP systolic 120–142; BP diastolic 63–86; TEMP 96.9–97.2; O2SAT 85–92
[2024-03-18 04:36] LABS: HEMATOCRIT 52.7 % (36.0-47.0); HEMOGLOBIN 16.6 g/dl (12.0-15.5); MEAN CORPUSCULAR HEMOGLOBIN 26.1 pg (27.0-33.0); MEAN CORPUSCULAR HGB CONC 31.5 g/dl (32.0-36.5); PLATELET COUNT, AUTOMATED 220 10^3/uL (150-450); RED BLOOD COUNT 6.35 10^6/uL (4.00-5.40); WHITE BLOOD COUNT 11.2 10^3/uL (4.0-10.0)
[2024-03-18 04:59] LABS: BLOOD UREA NITROGEN 15 MG/DL (9-23); CALCIUM LEVEL 8.7 MG/DL (8.3-10.6); CARBON DIOXIDE LEVEL 39 MMOL/L (20-31); CHLORIDE LEVEL 102 MMOL/L (98-107); CREATININE FOR GFR 0.41 MG/DL (0.55-1.30); GLOMERULAR FILTRATION RATE > 60.0 (>45); GLUCOSE, FASTING 119 MG/DL (74-106); POTASSIUM SERUM 3.3 MMOL/L (3.5-5.1); SODIUM LEVEL 143 MMOL/L (136-145)
[2024-03-18] MEDS: POTASSIUM CHLORIDE 10MEQ SR TABLET PO ONE (06:12)
[2024-03-18] MEDS: dilTIAZem 120MG **CD** CAPSULE PO SCH (08:18)
[2024-03-18] MEDS: predniSONE 50 MG TAB PO SCH (08:18)
[2024-03-18] MEDS: TIOTROPIUM INHALER/CAPSULE (SPIRIVA) INH SCH (08:39)
[2024-03-18] MEDS: LEVALBUTEROL 1.25MG 0.5ML CONCENTRATE NEB INH SCH (08:40)
[2024-03-18] MEDS: SYMBICORT 160/4.5MCG INHALER 6GM INH SCH (08:40)
[2024-03-18] MEDS: FUROSEMIDE 40MG/4ML VIAL IV ONE (10:36)
[2024-03-18] MEDS ORDERED: LevoFLOXacin 750 MG TABLET PO SCH (12:55)
[2024-03-18] MEDS: cefTRIAXone SOD 1 GM in D5W MINI-BAG PLUS 50 ML IV SCH (14:18)
[2024-03-19 05:00] VITALS: BP 125/63; TEMP 97; O2SAT 94
[2024-03-19 07:17] LABS: HEMATOCRIT 57.3 % (36.0-47.0); HEMOGLOBIN 18.1 g/dl (12.0-15.5); MEAN CORPUSCULAR HEMOGLOBIN 26.1 pg (27.0-33.0); MEAN CORPUSCULAR HGB CONC 31.6 g/dl (32.0-36.5); MEAN CORPUSCULAR VOLUME 82.7 fl (80.0-96.0); PLATELET COUNT, AUTOMATED 251 10^3/uL (150-450); RED BLOOD COUNT 6.93 10^6/uL (4.00-5.40); WHITE BLOOD COUNT 10.8 10^3/uL (4.0-10.0)
[2024-03-19 07:47] LABS: BLOOD UREA NITROGEN 18 MG/DL (9-23); CALCIUM LEVEL 8.8 MG/DL (8.3-10.6); CARBON DIOXIDE LEVEL > 40.0 MMOL/L (20-31); CHLORIDE LEVEL 99 MMOL/L (98-107); CREATININE FOR GFR 0.51 MG/DL (0.55-1.30); GLOMERULAR FILTRATION RATE > 60.0 (>45); GLUCOSE, FASTING 104 MG/DL (74-106); POTASSIUM SERUM 2.9 MMOL/L (3.5-5.1); SODIUM LEVEL 143 MMOL/L (136-145)
[2024-03-19] MEDS ORDERED: TIOT18INH INH (08:54)
[2024-03-19] MEDS ORDERED: SYMB16INH INH (08:54)
[2024-03-19] MEDS: POTASSIUM CHLORIDE 10MEQ SR TABLET PO SCH (09:48)
[2024-03-19 12:00] VITALS: BP 137/90; TEMP 97.2; O2SAT 95
[2024-03-19] MEDS: POTASSIUM CHLORIDE 10MEQ SR TABLET PO ONE (13:33)
[2024-03-19 18:00] VITALS: O2SAT 91
[2024-03-19 19:40] VITALS: O2SAT 96
[2024-03-19 20:00] VITALS: BP 134/90; TEMP 97; O2SAT 98
[2024-03-20 04:59] VITALS: BP 125/88; TEMP 96.8; O2SAT 92
[2024-03-20 08:29] VITALS: BP 121/83
[2024-03-20] MEDS: POTASSIUM CHLORIDE 10MEQ SR TABLET PO SCH (08:30)
[2024-03-20] MEDS: CEFDINIR 300 MG CAP (OMNICEF) PO SCH (08:33)
[2024-03-20] MEDS ORDERED: CARD120C3 PO (10:21)
[2024-03-20] MEDS ORDERED: LOPR1TAB6 PO (10:21)
[2024-03-20] MEDS ORDERED: PRED10TA2 PO (10:21)
[2024-03-20] MEDS ORDERED: ELIQ5TAB PO (10:21)
[2024-03-20] MEDS ORDERED: CEFD300CAP PO (10:21)
[2024-03-20 11:29] VITALS: O2SAT 91
== END 2024-03-20 14:54 | disposition home health service (06) | DRG 189 ==
LOC: M ED 15:17 → M ED INP 17:22 → M ICU 18:16 → M MSPAV 03-18 20:00
PROVIDERS: ADMIT Internal Medicine Pulmonary Disease; ATTEND Internal Medicine Nephrology
PROC: B246ZZZ Ultrasonography of Right and Left Heart (ICD-10-PCS; principal; 2024-03-14)
DX: J96.22 Acute and chronic respiratory failure with hypercapnia (principal); J44.1 Chronic obstructive pulmonary disease with (acute) exacerbation; N39.0 Urinary tract infection, site not specified; B96.20 Unspecified Escherichia coli [E. coli] as the cause of diseases classified elsewhere; I48.91 Unspecified atrial fibrillation; E11.9 Type 2 diabetes mellitus without complications; E78.5 Hyperlipidemia, unspecified; F41.9 Anxiety disorder, unspecified; F17.210 Nicotine dependence, cigarettes, uncomplicated; J96.21 Acute and chronic respiratory failure with hypoxia; Z79.84 Long term (current) use of oral hypoglycemic drugs; Z79.899 Other long term (current) drug therapy; Z88.0 Allergy status to penicillin; Z88.2 Allergy status to sulfonamides; E87.5 Hyperkalemia; I10 Essential (primary) hypertension; K59.00 Constipation, unspecified; B34.8 Other viral infections of unspecified site

== ENCOUNTER → 2024-04-14 | Outpatient (REF) | payer MEDICARE, OTHER ==
[~2024-04-14] MED LIST changes: +AMLO1TAB25 PO; +CARD120C3 PO; +CEFD300CAP PO; +ELIQ5TAB PO; +LOPR1TAB6 PO; +PRED10TA2 PO; +SYMB16INH INH; +TIOT18INH INH
[2024-04-14 14:44] LABS: BASO # 0.1 10^3/uL (0.0-0.2); BASO % 0.7 % (0.0-1.0); EOS # 0.1 10^3/uL (0.0-0.5); EOS % 1.2 % (0.0-3.0); HEMATOCRIT 48.9 % (36.0-47.0); HEMOGLOBIN 15.7 g/dl (12.0-15.5); LYMPH # 1.9 10^3/uL (1.5-5.0); LYMPH % 25.1 % (24.0-44.0); MEAN CORPUSCULAR HEMOGLOBIN 26.7 pg (27.0-33.0); MEAN CORPUSCULAR HGB CONC 32.1 g/dl (32.0-36.5); MEAN CORPUSCULAR VOLUME 83.3 fl (80.0-96.0); MONO # 0.9 10^3/uL (0.0-0.8); MONO % 12.3 % (2.0-8.0); NEUTROPHILS # 4.6 10^3/uL (1.5-8.5); NEUTROPHILS % 59.9 % (36.0-66.0); PLATELET COUNT, AUTOMATED 241 10^3/uL (150-450); RED BLOOD COUNT 5.87 10^6/uL (4.00-5.40); WHITE BLOOD COUNT 7.7 10^3/uL (4.0-10.0)
[2024-04-14 14:50] LABS: HEMOGLOBIN A1c 7.1 % (4.0-6.0)
[2024-04-14 15:01] LABS: ALBUMIN 3.5 G/DL (3.2-5.2); ALKALINE PHOSPHATASE 113 U/L (46-116); ALT/SGPT 44 U/L (7.0-40); AST/SGOT 27 U/L (<34); BILIRUBIN,TOTAL 0.3 MG/DL (0.3-1.2); BLOOD UREA NITROGEN 16 MG/DL (9-23); CALCIUM LEVEL 9.2 MG/DL (8.3-10.6); CARBON DIOXIDE LEVEL 31 MMOL/L (20-31); CHLORIDE LEVEL 102 MMOL/L (98-107); CHOLESTEROL LEVEL 204 MG/DL (<200); CHOLESTEROL RISK RATIO 4.27 (<5); CREATININE FOR GFR 0.59 MG/DL (0.55-1.30); GLOMERULAR FILTRATION RATE > 60.0 (>45); GLUCOSE, FASTING 97 MG/DL (74-106); HDL CHOLESTEROL 47.7 MG/DL (>40); LDL CHOLESTEROL 114.1 MG/DL (<100); NON-HDL-C 156.3 MG/DL; SODIUM LEVEL 139 MMOL/L (136-145); TOTAL PROTEIN 6.8 G/DL (5.7-8.2); TRIGLYCERIDES LEVEL 211 MG/DL (<150)
== END ==
LOC: M SHH 14:09
PROVIDERS: ATTEND Registered Nurse
DX: I10 Essential (primary) hypertension (principal); E11.9 Type 2 diabetes mellitus without complications

== ENCOUNTER → 2024-06-08 | Outpatient (CLI) | payer MEDICARE, OTHER | LOC: M RAD 16:53 | PROVIDERS: ATTEND Internal Medicine Pulmonary Disease | DX: Z12.2 Encounter for screening for malignant neoplasm of respiratory organs (principal); Z87.891 Personal history of nicotine dependence; J43.9 Emphysema, unspecified; J47.9 Bronchiectasis, uncomplicated; I70.0 Atherosclerosis of aorta; I25.10 Atherosclerotic heart disease of native coronary artery without angina pectoris; E04.0 Nontoxic diffuse goiter ==

== ENCOUNTER → 2024-07-08 | Outpatient (REF) | payer MEDICARE, OTHER ==
[2024-07-08 15:38] LABS: BASO % 0.5 % (0.0-1.0); EOS # 0.2 10^3/uL (0.0-0.5); EOS % 2.1 % (0.0-3.0); HEMOGLOBIN 15.9 g/dl (12.0-15.5); LYMPH # 2.3 10^3/uL (1.5-5.0); LYMPH % 30.2 % (24.0-44.0); MEAN CORPUSCULAR HEMOGLOBIN 29.3 pg (27.0-33.0); MEAN CORPUSCULAR HGB CONC 33.1 g/dl (32.0-36.5); MEAN CORPUSCULAR VOLUME 88.6 fl (80.0-96.0); MONO # 0.8 10^3/uL (0.0-0.8); MONO % 11.1 % (2.0-8.0); NEUTROPHILS # 4.2 10^3/uL (1.5-8.5); NEUTROPHILS % 55.8 % (36.0-66.0); PLATELET COUNT, AUTOMATED 274 10^3/uL (150-450); RED BLOOD COUNT 5.42 10^6/uL (4.00-5.40); WHITE BLOOD COUNT 7.5 10^3/uL (4.0-10.0)
[2024-07-08 16:14] LABS: ALBUMIN 3.8 G/DL (3.2-5.2); ALKALINE PHOSPHATASE 100 U/L (35-104); ALT/SGPT 37 U/L (7.0-40); AST/SGOT 29 U/L (<34); BILIRUBIN,TOTAL 0.5 MG/DL (0.3-1.2); BLOOD UREA NITROGEN 20 MG/DL (9-23); CALCIUM LEVEL 10.3 MG/DL (8.3-10.6); CARBON DIOXIDE LEVEL 33 MMOL/L (20-31); CHLORIDE LEVEL 99 MMOL/L (98-107); CHOLESTEROL LEVEL 188 MG/DL (<200); CHOLESTEROL RISK RATIO 4.07 (<5); CREATININE FOR GFR 0.75 MG/DL (0.55-1.30); GLOMERULAR FILTRATION RATE > 60.0 (>45); GLUCOSE, FASTING 93 MG/DL (74-106); HDL CHOLESTEROL 46.1 MG/DL (>40); LDL CHOLESTEROL 103.7 MG/DL (<100); NON-HDL-C 141.9 MG/DL; POTASSIUM SERUM 3.7 MMOL/L (3.5-5.1); SODIUM LEVEL 142 MMOL/L (136-145); TOTAL PROTEIN 7.7 G/DL (5.7-8.2); TRIGLYCERIDES LEVEL 191 MG/DL (<150)
[2024-07-08 16:26] LABS: HEMOGLOBIN A1c 5.5 % (4.0-6.0)
== END ==
LOC: M SHH 15:05
PROVIDERS: ATTEND Registered Nurse
DX: E11.9 Type 2 diabetes mellitus without complications (principal); E78.2 Mixed hyperlipidemia; I10 Essential (primary) hypertension

== ENCOUNTER → 2025-03-14 | Outpatient (CLI) | payer MEDICARE, OTHER ==
[2025-03-14 12:36] LABS: BASO # 0.1 10^3/uL (0.0-0.2); BASO % 0.9 % (0.0-1.0); EOS # 0.1 10^3/uL (0.0-0.5); EOS % 1.6 % (0.0-3.0); LYMPH # 1.4 10^3/uL (1.5-5.0); LYMPH % 16.6 % (24.0-44.0); MONO # 0.8 10^3/uL (0.0-0.8); MONO % 8.8 % (2.0-8.0); NEUTROPHILS # 6.1 10^3/uL (1.5-8.5); NEUTROPHILS % 71.9 % (36.0-66.0); PLATELET COUNT, AUTOMATED 308 10^3/uL (150-450)
[2025-03-14 12:45] LABS: ESTIMATED AVERAGE GLUCOSE 126.0 MG/DL (60-110)
[2025-03-14 13:07] LABS: FREE T4 1.04 NG/DL (0.89-1.76)
[2025-03-14 13:10] LABS: VITAMIN B12 LEVEL 908.0 PG/ML (211-911)
[2025-03-14 13:11] LABS: ALT/SGPT 31.0 U/L (7.0-40); AST/SGOT 31.0 U/L (<34); CALCIUM LEVEL 9.2 MG/DL (8.3-10.6); CARBON DIOXIDE LEVEL 28.0 MMOL/L (20-31); CHLORIDE LEVEL 104.0 MMOL/L (98-107); CHOLESTEROL LEVEL 160.0 MG/DL (<200); CHOLESTEROL RISK RATIO 4.8 (<5); CREATININE FOR GFR 0.82 MG/DL (0.55-1.30); GLOMERULAR FILTRATION RATE 77.9 (>45); LDL CHOLESTEROL 78.7 MG/DL (<100); NON-HDL-C 126.7 MG/DL; POTASSIUM SERUM 4.5 MMOL/L (3.5-5.1); SODIUM LEVEL 142.0 MMOL/L (136-145); TRIGLYCERIDES LEVEL 240.0 MG/DL (<150)
== END ==
LOC: M LAB 11:24
PROVIDERS: ATTEND Registered Nurse
DX: E11.9 Type 2 diabetes mellitus without complications (principal); E78.2 Mixed hyperlipidemia; R53.83 Other fatigue

== ENCOUNTER → 2025-04-19 | Outpatient (CLI) | payer MEDICARE, OTHER ==
[2025-04-19 10:13] LABS: BASO # 0.1 10^3/uL (0.0-0.2); BASO % 0.8 % (0.0-1.0); EOS # 0.2 10^3/uL (0.0-0.5); EOS % 2.1 % (0.0-3.0); LYMPH # 1.9 10^3/uL (1.5-5.0); LYMPH % 25.5 % (24.0-44.0); MONO # 0.8 10^3/uL (0.0-0.8); MONO % 10.6 % (2.0-8.0); NEUTROPHILS # 4.5 10^3/uL (1.5-8.5); NEUTROPHILS % 60.6 % (36.0-66.0); PLATELET COUNT, AUTOMATED 304 10^3/uL (150-450)
[2025-04-19 10:44] LABS: ALT/SGPT 29.0 U/L (7.0-40); AST/SGOT 42.0 U/L (<34); CALCIUM LEVEL 9.4 MG/DL (8.3-10.6); CARBON DIOXIDE LEVEL 30.0 MMOL/L (20-31); CHLORIDE LEVEL 98.0 MMOL/L (98-107); CHOLESTEROL LEVEL 150.0 MG/DL (<200); CHOLESTEROL RISK RATIO 3.96 (<5); CREATININE FOR GFR 0.86 MG/DL (0.55-1.30); GLOMERULAR FILTRATION RATE 73.5 (>45); LDL CHOLESTEROL 74.6 MG/DL (<100); NON-HDL-C 112.2 MG/DL; POTASSIUM SERUM 4.1 MMOL/L (3.5-5.1); SODIUM LEVEL 139.0 MMOL/L (136-145); TRIGLYCERIDES LEVEL 188.0 MG/DL (<150)
[2025-04-19 10:47] LABS: FREE T4 1.11 NG/DL (0.89-1.76)
[2025-04-19 11:04] LABS: ESTIMATED AVERAGE GLUCOSE 120.0 MG/DL (60-110)
== END ==
LOC: M LAB 09:16
PROVIDERS: ATTEND Internal Medicine Cardiovascular Disease
DX: E78.2 Mixed hyperlipidemia (principal); Z13.220 Encounter for screening for lipoid disorders; I48.91 Unspecified atrial fibrillation; Z13.1 Encounter for screening for diabetes mellitus

== ENCOUNTER 2025-05-30 13:58 | Emergency (ER) | payer MEDICARE, OTHER ==
[~2025-05-30] VITALS: Ht 162.6 cm; Wt 95.6 kg
[2025-05-30 14:21] LABS: BASO # 0.1 10^3/uL (0.0-0.2); BASO % 0.6 % (0.0-1.0); EOS # 0.1 10^3/uL (0.0-0.5); EOS % 1.1 % (0.0-3.0); LYMPH # 1.8 10^3/uL (1.5-5.0); LYMPH % 17.0 % (24.0-44.0); MONO # 1.1 10^3/uL (0.0-0.8); MONO % 10.4 % (2.0-8.0); NEUTROPHILS # 7.6 10^3/uL (1.5-8.5); NEUTROPHILS % 70.2 % (36.0-66.0); PLATELET COUNT, AUTOMATED 326 10^3/uL (150-450)
[2025-05-30 14:52] LABS: ALT/SGPT 24.0 U/L (7.0-40); AST/SGOT 32.0 U/L (<34); CALCIUM LEVEL 9.6 MG/DL (8.3-10.6); CARBON DIOXIDE LEVEL 30.0 MMOL/L (20-31); CHLORIDE LEVEL 99.0 MMOL/L (98-107); CREATININE FOR GFR 0.88 MG/DL (0.55-1.30); GLOMERULAR FILTRATION RATE 71.5 (>45); POTASSIUM SERUM 4.0 MMOL/L (3.5-5.1); SODIUM LEVEL 139.0 MMOL/L (136-145)
[2025-05-30 15:10] VITALS: O2SAT 89
[2025-05-30] MEDS: ALBUTEROL SULFATE 2.5 MG/0.5 ML INH CONCENTRATE NEB SOLN INH ONE (15:41)
[2025-05-30] MEDS: IPRATROPIUM 0.5 MG/ALBUTEROL 2.5 MG INH SOL UD 3 ML NEB ONE (15:41)
[2025-05-30] MEDS ORDERED: DOXY-441 PO (17:46)
[2025-05-30] MEDS ORDERED: PRED20TA PO (17:46)
[2025-05-30] MEDS: DOXYCYCLINE HYCLATE 100 MG TABLET PO ONE (18:26)
[2025-05-30 18:30] VITALS: BP 169/78
[2025-05-30 18:31] VITALS: TEMP 99; O2SAT 94
== END 2025-05-30 18:32 | disposition home or self-care (01) ==
LOC: M ED 13:58 → EDBD 13:58 → M ED 18:32
DX: J44.1 Chronic obstructive pulmonary disease with (acute) exacerbation (principal); E11.9 Type 2 diabetes mellitus without complications; E78.5 Hyperlipidemia, unspecified; Z87.891 Personal history of nicotine dependence; Z79.01 Long term (current) use of anticoagulants; Z79.84 Long term (current) use of oral hypoglycemic drugs; Z79.899 Other long term (current) drug therapy; Z88.0 Allergy status to penicillin; Z88.2 Allergy status to sulfonamides
CPT/HCPCS: 71045; 80048; 80076; 83605; 83880; 84145; 84443; 85025; 87070; 87205; 87486; 87581; 87633; 87798; 93005; 93041; 94640; 94760; 96374; 99285; J2919